=== PATIENT | male | born 1945 ===

== ENCOUNTER → 2023-09-10 10:54 | Outpatient (REF) | payer MEDICARE, OTHER, SELFPAY | LOC: RAD 10:54 | PROVIDERS: ATTENDING PHYSICIAN Internal Medicine Critical Care Medicine; FAMILY PHYSICIAN Student in an Organized Health Care Education/Training Program | DX: R05.3 Chronic cough (principal); R91.8 Other nonspecific abnormal finding of lung field; I42.8 Other cardiomyopathies | CPT/HCPCS: 71250 ==